=== PATIENT | male | born 1990 | race Caucasian/White ===

== ENCOUNTER 2020-02-17 22:25 | Inpatient (IN) | payer BC ==
[~2020-02-17] VITALS: Ht 180.3 cm; Wt 86.1 kg
[2020-02-17 22:45] VITALS: BP 119/58
[2020-02-17] MEDS ORDERED: ONDANSETRON PF 4 MG/2 ML VIAL. IVP PRN (23:00)
[2020-02-17] MEDS: IV NORMAL SALINE 1000ML BAG 1,000 ML IV SCH (23:41)
--- NOTE | 2020-02-18 | NUR ---
The patient, WILNER DHALIWAL, 29 y/o, M admitted by MANJULA DUONG MD, was given written information regarding hospital policies, unit procedures and contact persons. Valuables were checked and left in room with patient . Vitals stable, call light within reach. Will continue to monitor.
[2020-02-18] MEDS: fentaNYL PF VIAL 100 MCG/2 ML VIAL IVP PRN ×5 (00:33→20:55)
[2020-02-18 03:45] VITALS: BP 103/59
[2020-02-18] MEDS: ACETAMINOPHEN 325 MG TABLET. PO PRN ×2 (04:33→11:20)
--- NOTE | 2020-02-18 06:07 | PDOC1 ---
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 right forearm age 14 Cardiovascular: No pertinent hx Pulmonary: No pertinent hx GI: No pertinent hx Psych: No pertinent hx Rheumatologic: No pertinent hx Infectious disease: No pertinent hx ENT: No pertinent hx Renal/: No pertinent hx Endocrine: No pertinent hx Dermatology: No pertinent hx Family History Family History: High Cholestrol Social History Smoke: No ALCOHOL: occassional Drugs: None Current Medications Current Medications Current Medications Sodium Chloride 1,000 ml @ 140 mls/hr Q7H9M IV Last administered on 02/17/20at 23:41; Start 02/17/20 at 23:00 Acetaminophen (Tylenol) 650 mg PRN Q6HRS PRN PO MILD PAIN / TEMP > 100.3'F Last administered on 02/18/20at 04:33; Start 02/17/20 at 23:00 Ondansetron HCl (Zofran) 4 mg PRN Q4HRS PRN IVP NAUSEA/VOMITING Last administered on 02/18/20at 00:33; Start 02/17/20 at 23:00 Fentanyl Citrate (Fentanyl 2ml Vial) 50 mcg PRN Q3HRS PRN IVP PAIN Last administered on 02/18/20at 00:33; Start 02/17/20 at 23:00 Allergies Allergies: Uncoded Allergies: iodine contrast (Allergy, Intermediate, 02/17/20) ROS Review of System rlq pain x 24 hrs General: YES: Chills, Fatigue, Appetite PSYCHOLOGICAL ROS: No: Anxiety, Behavioral Disorder, Concentration difficultie, Decreased libido, Depression, Disorientation, Hallucinations, Hostility, Irritablity, Memory difficulties, Mood Swings, Obsessive thoughts, Physical abuse, Sexual abuse, Sleep disturbances, Suicidal ideation, Other Eyes: No Blurry vision, No Decreased vision, No Double vision, No Dry eyes, No Excessive tearing, No Eye Pain, No Itchy Eyes, No Loss of vision, No Photophobia, No Scotomata, No Uses contacts, No Uses glasses, No Other HEENT: No: Heacaches, Visual Changes, Hearing change, Nasal congestion, Nasal discharge, Oral lesions, Sinus pain, Sore Throat, Epistaxis, Sneezing, Snoring, Tinnitus, Vertigo, Vocal changes, Other Hematological and Lymphatic: No: Bleeding Problems, Blood Clots, Blood Transfusions, Brusing, Night Sweats, Pallor, Swollen Lymph Nodes, Other ENDOCRINE: No: Breast Changes, Galactorrhea, Hair Pattern Changes, Hot Flashes, Malaise/lethargy, Mood Swings, Palpitations, Polydipsia/polyuria, Skin Changes, Temperature Intolerance, Unexpected Weight Changes, Other Breast: No New/Changing Breast Lumps, No Nipple changes, No Nipple discharge, No Other Respiratory: No: Cough, Hemoptysis, Orthopnea, Pleuritic Pain, Shortness of breath, SOB with excertion, Sputum Changes, Stridor, Tachypnea, Wheezing, Other Cardiovascular: No Chest Pain, No Palpitations, No Orthopnea, No Paroxysmal Noc. Dyspnea, No Edema, No Lt Headedness, No Other Gastrointestinal: Yes Nausea, Yes Vomiting, Yes Abdominal Pain; No Diarrhea, No Constipation, No Melena, No Hematochezia, No Other Genitourinary: No Dysuria, No Frequency, No Incontinence, No Hematuria, No Retention, No Discharge, No Urgency, No Pain, No Flank Pain, No Other, No , No , No , No , No , No , No Musculoskeletal: No Gait Disturbance, No Joint Pain, No Joint Stiffness, No Joint Swelling, No Muscle Pain, No Muscular Weakness, No Pain In:, No Swelling In:, No Other Neurological: No Behavorial Changes, No Bowel/Bladder ControlChng, No Confusion , No Dizziness, No Gait Disturbance, No Headaches, No Impaired Coord/balance, No Memory Loss, No Numbness/Tingling, No Seizures, No Speech Problems, No Tremors, No Visual Changes, No Weakness, No Other Skin: No Dry Skin, No Eczema, No Hair Changes, No Lumps, No Mole Changes, No Mottling, No Nail Changes, No Pruritus, No Rash, No Skin Lesion Changes, No Other, No Acne Physical Exam General: Alert, Oriented X3, Cooperative, No acute distress, mild distress HEENT: PERRLA Lungs: Clear to auscultation Heart: S1S2, RRR, no thrills, no rubs, no gallops, no murmurs, other (TACHY) Breasts: Not examined Abdomen: No masses, Other (rlq tender ) Rectal Exam: not examined PELVIC: Examination not indicated Extremities: No clubbing, No cyanosis, No edema, Normal pulses Skin: No significant lesion Neuro: Normal speech, Strength at 5/5 X4 ext, Sensation intact, Cranial nerves 3-12 NL Psych/Mental Status: Mental status NL, Mood NL Vitals Vitals Vital Signs Date Time Temp Pulse Resp B/P (MAP) Pulse Ox O2 Delivery O2 Flow Rate FiO2 02/18/20 03:45 102.8 108 18 103/59 (74) 97 Room Air 102.8 Labs Labs pending this AM VTE Prophylaxis Ordered VTE Prophylaxis Devices: No VTE Pharmacological Prophylaxi: Yes Assessment/Plan Assessment/Plan impression 1. sepsis, acute 2. acute appendicitis 3. Tachycardia sec to sepsis plan admit blood cult consult gen surgery emperic IV FLAGYL, ROCEPHIN NPO IV FLUID SUPPORT SERIAL EXAMS LACTIC ACID hold lovenox for possible surgery this AM SCD'S d/w er dr by phone Justifications for Admission Other Justification MANJULA DUONG MD Feb 18, 2020 06:07
[2020-02-18] MEDS: IV NORMAL SALINE 1000ML BAG 1,000 ML IV SCH ×5 (07:31→13:18)
[2020-02-18] MEDS ORDERED: diphenhydrAMINE 50 MG/ML VIAL IVP PRN (07:45)
[2020-02-18] MEDS ORDERED: guaiFENesin ORAL 200 MG/10 ML LIQUID. PO PRN (07:45)
[2020-02-18] MEDS ORDERED: ONDANSETRON PF 4 MG/2 ML VIAL. IV PRN (07:45)
[2020-02-18] MEDS ORDERED: IV NORMAL SALINE 500ML BAG 500 ML IV PRN (07:45)
[2020-02-18] MEDS ORDERED: LORazepam 0.5 MG TABLET PO PRN (07:45)
[2020-02-18] MEDS ORDERED: BUPIVACAINE-EPI 0.5%-1:200000 MPF 30 ML VIAL. INJ ONE (07:45)
[2020-02-18] MEDS ORDERED: 0.9 % SODIUM CHLORIDE 10 ML DISP.SYRIN. IV PRN (07:45)
[2020-02-18] MEDS ORDERED: HYDROmorphone 2 MG/ML VIAL IV PRN (07:45)
[2020-02-18] MEDS ORDERED: DOCUSATE SODIUM 100 MG CAPSULE. PO PRN (07:45)
[2020-02-18] MEDS ORDERED: ACETAMINOPHEN 650 MG SUPP.RECT. PR PRN (07:45)
[2020-02-18] MEDS ORDERED: ALBUTEROL SULFATE 2.5 MG/3 ML NEBU. NEB PRN (07:45)
[2020-02-18] MEDS: cefTRIAXone IV Push 1 GM VIAL. IVP SCH (08:11)
[2020-02-18 08:18] LABS: ALBUMIN 3.3 g/dL (3.4-5.0); ALBUMIN/GLOBULIN RATIO 0.9 (1.0-1.7); CALCIUM 8.6 mg/dL (8.5-10.1); CREATININE 1.2 mg/dL (0.7-1.3); GFR 70.6; POTASSIUM 3.5 mmol/L (3.5-5.1); TOTAL BILIRUBIN 1.1 mg/dL (0.2-1.0); TOTAL PROTEIN 6.8 g/dL (6.4-8.2)
[2020-02-18 08:26] LABS: BASO % 0 % (0-3); EOS % 0 % (0-3); HEMATOCRIT 46.2 % (39.0-53.0); HEMOGLOBIN 15.6 g/dL (13.0-17.5); LYMPH # 0.3 x10^3/uL (1.0-4.8); LYMPH % 5 % (24-48); MEAN CORPUSCULAR HEMOGLOBIN 32 pg (25-35); MEAN CORPUSCULAR HGB CONC 34 g/dL (31-37); MEAN CORPUSCULAR VOLUME 95 fL (79-100); MONO # 0.2 x10^3/uL (0.0-1.1); MONO % 3 % (0-9); NEUT # 6.7 x10^3/uL (1.8-7.7); NEUT % 93 % (31-73); PLATELET COUNT 161 x10^3/uL (140-400); RED BLOOD COUNT 4.87 x10^6/uL (4.30-5.70); RED CELL DISTRIBUTION WIDTH 13.3 % (11.5-14.5); WHITE BLOOD COUNT 7.2 x10^3/uL (4.0-11.0)
[2020-02-18 10:31] LABS: % BANDS 10 % (0-9); % BASOS 1 % (0-3); % LYMPHS 3 % (24-48); % MONOS 1 % (0-10); % SEGS 85 % (35-66); PLT ESTIMATE ADEQUATE (ADEQUATE)
--- NOTE | 2020-02-18 10:55 | RAD ---
Single view of the chest. 02/18/2020 6:08 AM Indication: Reason: FEVER / Spl. Instructions: / History: Comparison: None Findings: There is no focal consolidation. There is no pleural effusion or pneumothorax. The cardiomediastinal silhouette and pulmonary vasculature are within normal limits. No acute osseous abnormalities are seen. Impression: No evidence of acute cardiopulmonary process. Electronically signed by: Guilherme Abbott MD (02/18/2020 10:52 AM) [id number]
[2020-02-18 11:16] VITALS: BP 100/66
[2020-02-18 11:22] LABS: BILIRUBIN,URINE NEGATIVE (NEG); CLARITY,URINE CLEAR; COLOR,URINE AMBER; NITRITE,URINE NEGATIVE (NEG); PH,URINE 6.5 (<5.0-8.0); PROTEIN,URINE 30 mg/dL (NEG-TRACE)
[2020-02-18 11:30] LABS: BACTERIA,URINE FEW /HPF (0-FEW); RBC,URINE OCC /HPF (0-2)
[2020-02-18] MEDS ORDERED: IV RINGERS,LACTATED 1000ML 1,000 ML IV SCH (11:38)
[2020-02-18] MEDS ORDERED: ONDANSETRON PF 4 MG/2 ML VIAL. IVP PRN (11:45)
[2020-02-18] MEDS ORDERED: HYDROmorphone 2 MG/ML VIAL IVP PRN (11:45)
[2020-02-18] MEDS ORDERED: PROCHLORPERAZINE 10 MG/2 ML VIAL. IVP PRN (11:45)
[2020-02-18] MEDS ORDERED: LIDOCAINE 1% PF 2 ML VIAL. ID PRN (11:45)
[2020-02-18] MEDS ORDERED: fentaNYL PF VIAL 100 MCG/2 ML VIAL IVP PRN (11:45)
[2020-02-18] MEDS ORDERED: MORPHINE SULFATE 2 MG/ML VIAL. IVP PRN (11:45)
[2020-02-18] MEDS ORDERED: ROCURONIUM 50 MG/5 ML VIAL. ONE (12:43)
[2020-02-18] MEDS ORDERED: fentaNYL PF VIAL 250 MCG/5 ML VIAL ONE (12:44)
[2020-02-18] MEDS ORDERED: MIDAZOLAM HCL/PF 2 MG/2 ML VIAL. ONE (12:44)
[2020-02-18] MEDS ORDERED: IV NORMAL SALINE 1000ML BAG 1,000 ML IV ONE (12:45)
[2020-02-18] MEDS ORDERED: ONDANSETRON PF 4 MG/2 ML VIAL. ONE ×2 (12:47)
[2020-02-18] MEDS ORDERED: PROPOFOL 10 MG/ML (20ML) VIAL. IV ONE (12:47)
[2020-02-18] MEDS ORDERED: LIDOCAINE 2% PF 5 ML VIAL. ONE (12:47)
[2020-02-18] MEDS ORDERED: DEXAMETHASONE SOD PHOS 4 MG/ML VIAL ONE (12:47)
--- NOTE | 2020-02-18 13:11 | NUR ---
SS following for discharge planning. SS reviewed pt chart and discussed with pt RN. Pt is from home and is currently on room air. Pt on IV Rocephin. COVID19 negative. Pt having surgery today. SS will continue to follow for discharge planning.
[2020-02-18] MEDS ORDERED: SUCCINYLCHOLINE 200 MG/10 ML VIAL. ONE (14:36)
[2020-02-18] MEDS ORDERED: SEVOFLURANE 61 TO 120 MINUTES. IH ONE (14:36)
--- NOTE | 2020-02-18 15:25 | PDOC2 ---
CONSULT Date of Consult Date of Consult DATE: 02/18/20 TIME: 15:21 History of Present Illness Reason for Visit: The patient is a 29 year old male who was transferred from [facility] out of concern for appendicitis. He reported to the ER due to abdominal pain. He admits to having some intermittent chronic abdominal pain for several years, and states he was once told he may have Crohn's disease. He currently is not receiving any treatments. Yesterday he developed more severe pain around the umbilicus and lower abdomen with associated vomiting. Past Medical History Cardiovascular: No pertinent hx Pulmonary: No pertinent hx GI: No pertinent hx Psych: No pertinent hx Rheumatologic: No pertinent hx Infectious disease: No pertinent hx ENT: No pertinent hx Renal/: No pertinent hx Endocrine: No pertinent hx Dermatology: No pertinent hx Past Surgical History Past Surgical History No abdominal procedures Family History Family History: High Cholestrol Social History No ALCOHOL: occassional Drugs: None Current Medications Current Medications Current Medications Sodium Chloride 1,000 ml @ 140 mls/hr Q7H9M IV Last administered on 02/18/20at 08:10; Start 02/17/20 at 23:00 Acetaminophen (Tylenol) 650 mg PRN Q6HRS PRN PO MILD PAIN / TEMP > 100.3'F Last administered on 02/18/20at 11:20; Start 02/17/20 at 23:00 Ondansetron HCl (Zofran) 4 mg PRN Q4HRS PRN IVP NAUSEA/VOMITING Last administered on 02/18/20at 00:33; Start 02/17/20 at 23:00 Fentanyl Citrate (Fentanyl 2ml Vial) 50 mcg PRN Q3HRS PRN IVP PAIN Last administered on 02/18/20at 08:07; Start 02/17/20 at 23:00 Ceftriaxone Sodium (Rocephin) 1 gm Q24H IVP Last administered on 02/18/20at 08:11; Start 02/18/20 at 07:00 Metronidazole 100 ml @ 100 mls/hr Q8HRS IV ; Start 02/18/20 at 14:00 Bupivacaine HCl/ Epinephrine Bitart (Sensorcain-Epi 0.5%-1:017517 Mpf) 30 ml 1X ONCE INJ ; Start 02/18/20 at 07:45; Stop 02/18/20 at 07:46; Status DC Sodium Chloride 1,000 ml @ 2,250 mls/hr Q27M IV ; Start 02/18/20 at 07:31; Stop 02/18/20 at 08:31; Status DC Sodium Chloride 500 ml @ 1,000 mls/hr PRN Q30MIN PRN IV SEE COMMENTS; Start 02/18/20 at 07:45 Sodium Chloride (Normal Saline Flush) 3 ml QSHIFT PRN IV AFTER MEDS AND BLOOD DRAWS; Start 02/18/20 at 07:45 Ondansetron HCl (Zofran) 4 mg PRN Q4HRS PRN IV NAUSEA/VOMITING; Start 02/18/20 at 07:45 Acetaminophen (Tylenol Supp) 650 mg PRN Q4HRS PRN MI TEMP OVER 100.4F OR MILD PAIN; Start 02/18/20 at 07:45 Diphenhydramine HCl (Benadryl) 25 mg PRN Q4HRS PRN IVP ITCHING; Start 02/18/20 at 07:45 Docusate Sodium (Colace) 100 mg PRN BID PRN PO HARD STOOLS; Start 02/18/20 at 07:45 Albuterol Sulfate (Ventolin Neb Soln) 2.5 mg PRN Q4HRS PRN NEB SHORTNESS OF BREATH; Start 02/18/20 at 07:45 Guaifenesin (Robitussin) 200 mg PRN Q4HRS PRN PO COUGH; Start 02/18/20 at 07:45 Lorazepam (Ativan) 0.5 mg PRN Q4HRS PRN PO ANXIETY / AGITATION; Start 02/18/20 at 07:45 Hydromorphone HCl (Dilaudid) 1 mg PRN Q2HRS PRN IV SEVERE PAIN 7-10; Start 02/18/20 at 07:45 Ondansetron HCl (Zofran) 4 mg PRN Q6HRS PRN IVP NAUSEA/VOMITING; Start 02/18/20 at 11:45; Stop 02/19/20 at 11:44 Fentanyl Citrate (Fentanyl 2ml Vial) 25 mcg PRN Q5MIN PRN IVP MILD PAIN 1-3; Start 02/18/20 at 11:45; Stop 02/19/20 at 11:44 Fentanyl Citrate (Fentanyl 2ml Vial) 50 mcg PRN Q5MIN PRN IVP MODERATE TO SEVERE PAIN; Start 02/18/20 at 11:45; Stop 02/19/20 at 11:44 Morphine Sulfate (Morphine Sulfate) 1 mg PRN Q10MIN PRN IVP SEVERE PAIN 7-10; Start 02/18/20 at 11:45; Stop 02/19/20 at 11:44 Ringer's Solution 1,000 ml @ 30 mls/hr Q24H IV Last administered on 02/18/20at 12:15; Start 02/18/20 at 11:38; Stop 02/18/20 at 23:37 Lidocaine HCl (Xylocaine-Mpf 1% 2ml Vial) 2 ml 1X PRN PRN ID IV START; Start 02/18/20 at 11:45; Stop 02/19/20 at 11:44 Hydromorphone HCl (Dilaudid) 0.5 mg PRN Q10MIN PRN IVP SEV PAIN, Second choice; Start 02/18/20 at 11:45; Stop 02/19/20 at 11:44 Prochlorperazine Edisylate (Compazine) 5 mg PACU PRN PRN IVP NAUSEA, MRX1; Start 02/18/20 at 11:45; Stop 02/19/20 at 11:44 Sodium Chloride 1,000 ml @ 1,000 mls/hr 1X ONCE IV ; Start 02/18/20 at 12:45; Stop 02/18/20 at 13:56; Status DC Rocuronium [place] (Zemuron) 50 mg STK-MED ONCE .ROUTE ; Start 02/18/20 at 12:43; Stop 02/18/20 at 12:43; Status DC Midazolam HCl (Versed) 2 mg STK-MED ONCE .ROUTE ; Start 02/18/20 at 12:44; Stop 02/18/20 at 12:44; Status DC Fentanyl Citrate (Fentanyl 5ml Vial) 250 mcg STK-MED ONCE .ROUTE ; Start 02/18/20 at 12:44; Stop 02/18/20 at 12:44; Status DC Ondansetron HCl (Zofran) 4 mg STK-MED ONCE .ROUTE ; Start 02/18/20 at 12:47; Stop 02/18/20 at 12:47; Status DC Ondansetron HCl (Zofran) 4 mg STK-MED ONCE .ROUTE ; Start 02/18/20 at 12:47; Stop 02/18/20 at 12:47; Status DC Dexamethasone Sodium Phosphate (Decadron) 4 mg STK-MED ONCE .ROUTE ; Start 02/18/20 at 12:47; Stop 02/18/20 at 12:47; Status DC Propofol (Diprivan) 200 mg STK-MED ONCE IV ; Start 02/18/20 at 12:47; Stop 02/18/20 at 12:47; Status DC Lidocaine HCl (Lidocaine Pf 2% Vial) 5 ml STK-MED ONCE .ROUTE ; Start 02/18/20 at 12:47; Stop 02/18/20 at 12:47; Status DC Sevoflurane (Ultane) 60 ml STK-MED ONCE IH ; Start 02/18/20 at 14:36; Stop 02/18/20 at 14:36; Status DC Succinylcholine Chloride (Anectine) 200 mg STK-MED ONCE .ROUTE ; Start 02/18/20 at 14:36; Stop 02/18/20 at 14:37; Status DC Allergies Allergies: Coded Allergies: Iodine and Iodide Containing Produc (Verified Allergy, Intermediate, 02/18/20) vancomycin (Verified Adverse Reaction, Severe, Shortness of Air, 02/18/20) ROS General: No: Chills, Night Sweats, Fatigue, Malaise, Appetite, Other PSYCHOLOGICAL ROS: No: Anxiety, Behavioral Disorder, Concentration difficultie, Decreased libido, Depression, Disorientation, Hallucinations, Hostility, Irritablity, Memory difficulties, Mood Swings, Obsessive thoughts, Physical abuse, Sexual abuse, Sleep disturbances, Suicidal ideation, Other Eyes: No Blurry vision, No Decreased vision, No Double vision, No Dry eyes, No Excessive tearing, No Eye Pain, No Itchy Eyes, No Loss of vision, No Photophobia, No Scotomata, No Uses contacts, No Uses glasses, No Other HEENT: No: Heacaches, Visual Changes, Hearing change, Nasal congestion, Nasal discharge, Oral lesions, Sinus pain, Sore Throat, Epistaxis, Sneezing, Snoring, Tinnitus, Vertigo, Vocal changes, Other Hematological and Lymphatic: No: Bleeding Problems, Blood Clots, Blood Transfusions, Brusing, Night Sweats, Pallor, Swollen Lymph Nodes, Other ENDOCRINE: No: Breast Changes, Galactorrhea, Hair Pattern Changes, Hot Flashes, Malaise/lethargy, Mood Swings, Palpitations, Polydipsia/polyuria, Skin Changes, Temperature Intolerance, Unexpected Weight Changes, Other Cardiovascular: No Chest Pain, No Palpitations, No Orthopnea, No Paroxysmal Noc. Dyspnea, No Edema, No Lt Headedness, No Other Gastrointestinal: Yes Vomiting, Yes Abdominal Pain Genitourinary: No Dysuria, No Frequency, No Incontinence, No Hematuria, No Retention, No Discharge, No Urgency, No Pain, No Flank Pain, No Other, No , No , No , No , No , No , No Musculoskeletal: No Gait Disturbance, No Joint Pain, No Joint Stiffness, No Joint Swelling, No Muscle Pain, No Muscular Weakness, No Pain In:, No Swelling In:, No Other Neurological: No Behavorial Changes, No Bowel/Bladder ControlChng, No Confusion, No Dizziness, No Gait Disturbance, No Headaches, No Impaired Coord/balance, No Memory Loss, No Numbness/Tingling, No Seizures, No Speech Problems, No Tremors, No Visual Changes, No Weakness, No Other Skin: No Dry Skin, No Eczema, No Hair Changes, No Lumps, No Mole Changes, No Mottling, No Nail Changes, No Pruritus, No Rash, No Skin Lesion Changes, No Other, No Acne Physical Exam General: Alert, Oriented X3, Cooperative HEENT: Atraumatic Lungs: Clear to auscultation Heart: Regular rate Abdomen: Soft (tender with palpation in RLQ and lower mid abdomen) Extremities: No clubbing, No cyanosis Skin: No rashes, No breakdown Neuro: Normal speech Psych/Mental Status: Mental status NL Vitals VITALS Vital Signs Date Time Temp Pulse Resp B/P (MAP) Pulse Ox O2 Delivery O2 Flow Rate FiO2 02/18/20 12:33 99.2 86 15 111/65 100 Room Air 99.2 Labs Labs Laboratory Tests Test 02/18/20 06:40 02/18/20 07:50 02/18/20 09:30 02/18/20 10:30 Prothrombin Time 14.0 SEC (11.7-14.0) Prothromb Time International Ratio 1.1 (0.8-1.1) Activated Partial Thromboplast Time 37 SEC (24-38) Fibrinogen 400 mg/dL (200-440) C-Reactive Protein, Quantitative 111.6 mg/L (0-3.3) Procalcitonin 2.25 ng/mL (0.00-0.10) White Blood Count 7.2 x10^3/uL (4.0-11.0) Red Blood Count 4.87 x10^6/uL (4.30-5.70) Hemoglobin 15.6 g/dL (13.0-17.5) Hematocrit 46.2 % (39.0-53.0) Mean Corpuscular Volume 95 fL (79-100) Mean Corpuscular Hemoglobin 32 pg (25-35) Mean Corpuscular Hemoglobin Concent 34 g/dL (31-37) Red Cell Distribution Width 13.3 % (11.5-14.5) Platelet Count 161 x10^3/uL (140-400) Neutrophils (%) (Auto) 93 % (31-73) Lymphocytes (%) (Auto) 5 % (24-48) Monocytes (%) (Auto) 3 % (0-9) Eosinophils (%) (Auto) 0 % (0-3) Basophils (%) (Auto) 0 % (0-3) Neutrophils # (Auto) 6.7 x10^3/uL (1.8-7.7) Lymphocytes # (Auto) 0.3 x10^3/uL (1.0-4.8) Monocytes # (Auto) 0.2 x10^3/uL (0.0-1.1) Eosinophils # (Auto) 0.0 x10^3/uL (0.0-0.7) Basophils # (Auto) 0.0 x10^3/uL (0.0-0.2) Segmented Neutrophils % 85 % (35-66) Band Neutrophils % 10 % (0-9) Lymphocytes % 3 % (24-48) Monocytes % 1 % (0-10) Basophils % 1 % (0-3) Platelet Estimate Adequate (ADEQUATE) Sodium Level 139 mmol/L (136-145) Potassium Level 3.5 mmol/L (3.5-5.1) Chloride Level 104 mmol/L (98-107) Carbon Dioxide Level 25 mmol/L (21-32) Anion Gap 10 (6-14) Blood Urea Nitrogen 8 mg/dL (8-26) Creatinine 1.2 mg/dL (0.7-1.3) Estimated GFR (Cockcroft-Gault) 70.6 BUN/Creatinine Ratio 7 (6-20) Glucose Level 108 mg/dL (70-99) Calcium Level 8.6 mg/dL (8.5-10.1) Total Bilirubin 1.1 mg/dL (0.2-1.0) Aspartate Amino Transf (AST/SGOT) 22 U/L (15-37) Alanine Aminotransferase (ALT/SGPT) 23 U/L (16-63) Alkaline Phosphatase 56 U/L (46-116) Total Protein 6.8 g/dL (6.4-8.2) Albumin 3.3 g/dL (3.4-5.0) Albumin/Globulin Ratio 0.9 (1.0-1.7) SARS-CoV-2 Antigen (Rapid) Negative (NEGATIVE) Urine Collection Type Unknown Urine Color Ashlyn Urine Clarity Clear Urine pH 6.5 (<5.0-8.0) Urine Specific [place] 1.025 (1.000-1.030) Urine Protein 30 mg/dL (NEG-TRACE) Urine Glucose (UA) Negative mg/dL (NEG) Urine Ketones (Stick) Trace mg/dL (NEG) Urine Blood Negative (NEG) Urine Nitrite Negative (NEG) Urine Bilirubin Negative (NEG) Urine Urobilinogen Dipstick 1.0 mg/dL (0.2 mg/dL) Urine Leukocyte Esterase Negative (NEG) Urine RBC Occ /HPF (0-2) Urine WBC 1-4 /HPF (0-4) Urine Squamous Epithelial Cells Occ /LPF Urine Bacteria Few /HPF (0-FEW) Urine Mucus Marked /LPF Laboratory Tests Test 02/18/20 06:40 02/18/20 07:50 02/18/20 09:30 02/18/20 10:30 Prothrombin Time 14.0 SEC (11.7-14.0) Prothromb Time International Ratio 1.1 (0.8-1.1) Activated Partial Thromboplast Time 37 SEC (24-38) Fibrinogen 400 mg/dL (200-440) C-Reactive Protein, Quantitative 111.6 mg/L (0-3.3) Procalcitonin 2.25 ng/mL (0.00-0.10) White Blood Count 7.2 x10^3/uL (4.0-11.0) Red Blood Count 4.87 x10^6/uL (4.30-5.70) Hemoglobin 15.6 g/dL (13.0-17.5) Hematocrit 46.2 % (39.0-53.0) Mean Corpuscular Volume 95 fL (79-100) Mean Corpuscular Hemoglobin 32 pg (25-35) Mean Corpuscular Hemoglobin Concent 34 g/dL (31-37) Red Cell Distribution Width 13.3 % (11.5-14.5) Platelet Count 161 x10^3/uL (140-400) Neutrophils (%) (Auto) 93 % (31-73) Lymphocytes (%) (Auto) 5 % (24-48) Monocytes (%) (Auto) 3 % (0-9) Eosinophils (%) (Auto) 0 % (0-3) Basophils (%) (Auto) 0 % (0-3) Neutrophils # (Auto) 6.7 x10^3/uL (1.8-7.7) Lymphocytes # (Auto) 0.3 x10^3/uL (1.0-4.8) Monocytes # (Auto) 0.2 x10^3/uL (0.0-1.1) Eosinophils # (Auto) 0.0 x10^3/uL (0.0-0.7) Basophils # (Auto) 0.0 x10^3/uL (0.0-0.2) Segmented Neutrophils % 85 % (35-66) Band Neutrophils % 10 % (0-9) Lymphocytes % 3 % (24-48) Monocytes % 1 % (0-10) Basophils % 1 % (0-3) Platelet Estimate Adequate (ADEQUATE) Sodium Level 139 mmol/L (136-145) Potassium Level 3.5 mmol/L (3.5-5.1) Chloride Level 104 mmol/L (98-107) Carbon Dioxide Level 25 mmol/L (21-32) Anion Gap 10 (6-14) Blood Urea Nitrogen 8 mg/dL (8-26) Creatinine 1.2 mg/dL (0.7-1.3) Estimated GFR (Cockcroft-Gault) 70.6 BUN/Creatinine Ratio 7 (6-20) Glucose Level 108 mg/dL (70-99) Calcium Level 8.6 mg/dL (8.5-10.1) Total Bilirubin 1.1 mg/dL (0.2-1.0) Aspartate Amino Transf (AST/SGOT) 22 U/L (15-37) Alanine Aminotransferase (ALT/SGPT) 23 U/L (16-63) Alkaline Phosphatase 56 U/L (46-116) Total Protein 6.8 g/dL (6.4-8.2) Albumin 3.3 g/dL (3.4-5.0) Albumin/Globulin Ratio 0.9 (1.0-1.7) SARS-CoV-2 Antigen (Rapid) Negative (NEGATIVE) Urine Collection Type Unknown Urine Color Ashlyn Urine Clarity Clear Urine pH 6.5 (<5.0-8.0) Urine Specific [place] 1.025 (1.000-1.030) Urine Protein 30 mg/dL (NEG-TRACE) Urine Glucose (UA) Negative mg/dL (NEG) Urine Ketones (Stick) Trace mg/dL (NEG) Urine Blood Negative (NEG) Urine Nitrite Negative (NEG) Urine Bilirubin Negative (NEG) Urine Urobilinogen Dipstick 1.0 mg/dL (0.2 mg/dL) Urine Leukocyte Esterase Negative (NEG) Urine RBC Occ /HPF (0-2) Urine WBC 1-4 /HPF (0-4) Urine Squamous Epithelial Cells Occ /LPF Urine Bacteria Few /HPF (0-FEW) Urine Mucus Marked /LPF Images Images CT abdomen: IMPRESSION: * Blind-ending tubular structure in the right lower quadrant which could be seen with a mildly dilated appendix. There is also edema seen to the fat adjacent to the tip. Would correlate with symptoms in the region since this can be seen with an early tip appendicitis in the correct clinical context. * Urinary bladder wall is mildly prominent but there is no definite adjacent inflammatory changes at could be from lack of distention but mild cystitis not excluded. Report called to the emergency department at 7:04 PM Assessment/Plan Assessment/Plan 29 year old male with abdominal pain, RLQ and lower mid abdomen, CT scan reviewed, raising concern for appendicitis, WBC normal however. Given presentation may be prudent to proceed to laparoscopic evaluation. The details and risks of surgery were discussed with the patient. He understands and would like to proceed. CAMILLA MURILLO MD Feb 18, 2020 15:25
[2020-02-18] MEDS ORDERED: PHENYLEPHRINE in 0.9% NACL PF 1 MG/10 ML SYRINGE. IV ONE (15:41)
[2020-02-18] MEDS ORDERED: KETOROLAC 30 MG/ML VIAL. ONE (16:02)
[2020-02-18] MEDS ORDERED: NEOSTIGMINE 10 MG/10 ML VIAL. ONE (16:03)
[2020-02-18] MEDS ORDERED: GLYCOPYRROLATE 1 MG/5 ML VIAL. ONE (16:03)
--- NOTE | 2020-02-18 16:22 | PDOC4 ---
Operative Note Operative Note Preoperative Diagnosis: Acute Appendicitis Postoperative Diagnosis: ?Early appendicitis Procedure: Laparoscopic appendectomy Surgeon: Edison Corporate Responsibility Officer: Ramona Medley Anesthesia: Gen. EBL: 10 mL Specimen: Appendix to pathology Drains: None Complications: None Indication: The patient is a 29-year-old male who reported to the emergency department with abdominal pain. His evaluation raise concern for possible acute appendicitis. The patient was offered surgical treatment with a laparoscopic appendectomy. The risks of surgery were discussed which include bleeding, infection, visceral injury, pain, anesthetic risk, potential need for additional surgery or procedure. The patient understands and would like to proceed. Description: The patient was taken to the operating room and placed supine on the operating table. Gen. anesthesia was performed. The abdomen was prepped with ChloraPrep and draped in a standard surgical manner. A supraumbilical incision was made through which a veress needle was inserted and a pneumoperitoneum was created. A visualized 5 mm trocar was inserted and the laparoscope was introduced. In the left lower quadrant a 5 mm trocar was inserted. In the suprapubic region a 12 mm trocar was inserted. The appendix was identified and located in a retroperitoneal position. The distal tip seems somewhat scarred in consistent with mild inflammation. The remainder of the abdominal cavity was evaluated for an alternate source. The terminal ileum and cecum appeared normal. The bowel was run proximal from the terminal ileum with no evidence of any abnormalities. The visualized colon appeared unremarkable. The stomach and liver were unremarkable. There was no clear evidence of an alternate inflammatory process or other abnormality. We then proceeded with the appendectomy. The mesoappendix was bluntly from the appendix. The mesoappendix was controlled using several clips and it was divided. The appendix was then amputated off the cecum using an Endo KERON 45 stapling device. The appendix was then placed in an endoscopic bag and extracted at the suprapubic incision site. The fascia there was closed with 0 Vicryl and infiltrated with half percent Marcaine with epinephrine. The RLQ was visualized and the staple line appeared well intact and hemostasis was good. No other abnormalities were identified grossly. The remaining ports were removed and the pneumoperitoneum was relieved. The skin at all incision sites was closed with 4-0 Monocryl. Steri-Strips and dressings were applied. The patient tolerated the procedure well and was sent to the recovery room in stable condition. At the end of the case all counts were correct. CAMILLA MURILLO MD Feb 18, 2020 16:22
[2020-02-18] MEDS ORDERED: oxyCODONE/APAP 5/325 1 TAB TABLET PO PRN (16:30)
[2020-02-18] MEDS ORDERED: fentaNYL PF VIAL 100 MCG/2 ML VIAL ONE (16:44)
[2020-02-18 17:15] VITALS: BP 111/69
[2020-02-18 17:45] VITALS: BP 105/64
[2020-02-18 18:00] VITALS: BP 108/68
[2020-02-18] MEDS: oxyCODONE/APAP 5/325 1 TAB TABLET PO PRN (22:12)
[2020-02-18 22:38] VITALS: BP 111/64
[2020-02-19] MEDS: oxyCODONE/APAP 5/325 1 TAB TABLET PO PRN ×3 (02:22→14:43)
[2020-02-19 02:28] VITALS: BP 116/77
[2020-02-19 07:00] VITALS: BP 114/72
--- NOTE | 2020-02-19 07:28 | EKG ---
[facility] [address] [place] [address] Test Date: 2020-02-19 Test Time: 07:26:31 Pat Name: WILNER DHALIWAL Department: Room: 261 1 Gender: M Receptionist Nurse: CHRISTIAN : [id number] Requested By: MANJULA DUONG Order Number: [id number] Reading MD: Measurements Intervals [place] Rate: 63 P: -19 IA: 140 QRS: 13 QRSD: 84 T: 5 QT: 402 QTc: 414 Interpretive Statements SINUS RHYTHM NORMAL ECG RI6.02 No previous ECG available for comparison
--- NOTE | 2020-02-19 08:10 | PDOC ---
Infectious Disease Note Vital Sign Vital Signs Vital Signs Date Time Temp Pulse Resp B/P (MAP) Pulse Ox O2 Delivery O2 Flow Rate FiO2 02/19/20 06:51 20 Room Air 02/19/20 02:28 97.8 59 116/77 (90) 98 97.8 02/18/20 16:46 10.0 Labs Lab Laboratory Tests Test 02/18/20 09:30 02/18/20 10:30 SARS-CoV-2 Antigen (Rapid) Negative (NEGATIVE) Urine Collection Type Unknown Urine Color Ashlyn Urine Clarity Clear Urine pH 6.5 (<5.0-8.0) Urine Specific [place] 1.025 (1.000-1.030) Urine Protein 30 mg/dL (NEG-TRACE) Urine Glucose (UA) Negative mg/dL (NEG) Urine Ketones (Stick) Trace mg/dL (NEG) Urine Blood Negative (NEG) Urine Nitrite Negative (NEG) Urine Bilirubin Negative (NEG) Urine Urobilinogen Dipstick 1.0 mg/dL (0.2 mg/dL) Urine Leukocyte Esterase Negative (NEG) Urine RBC Occ /HPF (0-2) Urine WBC 1-4 /HPF (0-4) Urine Squamous Epithelial Cells Occ /LPF Urine Bacteria Few /HPF (0-FEW) Urine Mucus Marked /LPF Micro Microbiology 02/18/20 Blood Culture - Preliminary, Resulted NO GROWTH AFTER 1 DAY Objective Assessment pt seen, consult dictated Plan Plan of Care ok to d/c on po IZABELLA Burt MD Feb 19, 2020 08:10
--- NOTE | 2020-02-19 08:36 | PDOC ---
PROGRESS NOTES Date of Service: DATE: 02/19/20 TIME: 08:36 Chief Complaint Chief Complaint VTE Prophylaxis Ordered VTE Prophylaxis Devices: No VTE Pharmacological Prophylaxi: Yes discharge dx Assessment/Plan impression 1. sepsis, acute 2. acute appendicitis 3. Tachycardia sec to sepsis plan admit blood cult consult gen surgery emperic IV FLAGYL, ROCEPHIN NPO IV FLUID SUPPORT SERIAL EXAMS LACTIC ACID lovenox dvt prophylaxis SCD'S 02-18 PLAN D/C ON PO AUGMENTIN IF OK WITH SURGERY, AND PEGGY DIET WELL, LABS PENDING afebrile, eating well d/c planning 26 min History of Present Illness History of Present Illness Identification/Chief Complaint Chief Complaint transfer from [facility] ER, SELF DRIVEN for suspected acute appendicitis, ct co ncerning for dilated appendix, had febrile episodes yesterday and this am Past Medical History Past Medical History 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 right forearm age 14 Cardiovascular: No pertinent hx Pulmonary: No pertinent hx GI: No pertinent hx Psych: No pertinent hx Rheumatologic: No pertinent hx Infectious disease: No pertinent hx ENT: No pertinent hx Renal/: No pertinent hx Endocrine: No pertinent hx Dermatology: No pertinent hx Family History Family History: High Cholestrol Social History Smoke: No ALCOHOL: occassional Drugs: None Vitals Vitals Vital Signs Date Time Temp Pulse Resp B/P (MAP) Pulse Ox O2 Delivery O2 Flow Rate FiO2 02/19/20 06:51 20 Room Air 02/19/20 02:28 97.8 59 116/77 (90) 98 97.8 02/18/20 16:46 10.0 Physical Exam Physical Exam HEENT: PERRLA Lungs: Clear to auscultation Heart: S1S2, RRR, no thrills, no rubs, no gallops, no murmurs, Breasts: Not examined Abdomen: No masses, Other (rlq tender ) Rectal Exam: not examined PELVIC: Examination not indicated Extremities: No clubbing, No cyanosis, No edema, Normal pulses Skin: No significant lesion Neuro: Normal speech, Strength at 5/5 X4 ext, Sensation intact, Cranial nerves 3-12 NL Psych/Mental Status: Mental status NL, Mood NL General: Alert, Oriented X3, Cooperative, No acute distress Heart: Regular rate, Normal S1, Normal S2 Lungs: Clear Abdomen: Soft (tender with palpation in RLQ and lower mid abdomen) Extremities: No clubbing, No cyanosis, No edema Skin: No rashes, No breakdown Labs LABS Laboratory Tests Test 02/18/20 09:30 02/18/20 10:30 SARS-CoV-2 Antigen (Rapid) Negative (NEGATIVE) Urine Collection Type Unknown Urine Color Ashlyn Urine Clarity Clear Urine pH 6.5 (<5.0-8.0) Urine Specific [place] 1.025 (1.000-1.030) Urine Protein 30 mg/dL (NEG-TRACE) Urine Glucose (UA) Negative mg/dL (NEG) Urine Ketones (Stick) Trace mg/dL (NEG) Urine Blood Negative (NEG) Urine Nitrite Negative (NEG) Urine Bilirubin Negative (NEG) Urine Urobilinogen Dipstick 1.0 mg/dL (0.2 mg/dL) Urine Leukocyte Esterase Negative (NEG) Urine RBC Occ /HPF (0-2) Urine WBC 1-4 /HPF (0-4) Urine Squamous Epithelial Cells Occ /LPF Urine Bacteria Few /HPF (0-FEW) Urine Mucus Marked /LPF Comment Review of Relevant I have reviewed the following items idania (where applicable) has been applied. Labs Laboratory Tests Test 02/18/20 06:40 02/18/20 07:50 02/18/20 09:30 02/18/20 10:30 Prothrombin Time 14.0 SEC (11.7-14.0) Prothromb Time International Ratio 1.1 (0.8-1.1) Activated Partial Thromboplast Time 37 SEC (24-38) Fibrinogen 400 mg/dL (200-440) C-Reactive Protein, Quantitative 111.6 mg/L (0-3.3) Procalcitonin 2.25 ng/mL (0.00-0.10) White Blood Count 7.2 x10^3/uL (4.0-11.0) Red Blood Count 4.87 x10^6/uL (4.30-5.70) Hemoglobin 15.6 g/dL (13.0-17.5) Hematocrit 46.2 % (39.0-53.0) Mean Corpuscular Volume 95 fL (79-100) Mean Corpuscular Hemoglobin 32 pg (25-35) Mean Corpuscular Hemoglobin Concent 34 g/dL (31-37) Red Cell Distribution Width 13.3 % (11.5-14.5) Platelet Count 161 x10^3/uL (140-400) Neutrophils (%) (Auto) 93 % (31-73) Lymphocytes (%) (Auto) 5 % (24-48) Monocytes (%) (Auto) 3 % (0-9) Eosinophils (%) (Auto) 0 % (0-3) Basophils (%) (Auto) 0 % (0-3) Neutrophils # (Auto) 6.7 x10^3/uL (1.8-7.7) Lymphocytes # (Auto) 0.3 x10^3/uL (1.0-4.8) Monocytes # (Auto) 0.2 x10^3/uL (0.0-1.1) Eosinophils # (Auto) 0.0 x10^3/uL (0.0-0.7) Basophils # (Auto) 0.0 x10^3/uL (0.0-0.2) Segmented Neutrophils % 85 % (35-66) Band Neutrophils % 10 % (0-9) Lymphocytes % 3 % (24-48) Monocytes % 1 % (0-10) Basophils % 1 % (0-3) Platelet Estimate Adequate (ADEQUATE) Sodium Level 139 mmol/L (136-145) Potassium Level 3.5 mmol/L (3.5-5.1) Chloride Level 104 mmol/L (98-107) Carbon Dioxide Level 25 mmol/L (21-32) Anion Gap 10 (6-14) Blood Urea Nitrogen 8 mg/dL (8-26) Creatinine 1.2 mg/dL (0.7-1.3) Estimated GFR (Cockcroft-Gault) 70.6 BUN/Creatinine Ratio 7 (6-20) Glucose Level 108 mg/dL (70-99) Calcium Level 8.6 mg/dL (8.5-10.1) Total Bilirubin 1.1 mg/dL (0.2-1.0) Aspartate Amino Transf (AST/SGOT) 22 U/L (15-37) Alanine Aminotransferase (ALT/SGPT) 23 U/L (16-63) Alkaline Phosphatase 56 U/L (46-116) Total Protein 6.8 g/dL (6.4-8.2) Albumin 3.3 g/dL (3.4-5.0) Albumin/Globulin Ratio 0.9 (1.0-1.7) SARS-CoV-2 Antigen (Rapid) Negative (NEGATIVE) Urine Collection Type Unknown Urine Color Ashlyn Urine Clarity Clear Urine pH 6.5 (<5.0-8.0) Urine Specific [place] 1.025 (1.000-1.030) Urine Protein 30 mg/dL (NEG-TRACE) Urine Glucose (UA) Negative mg/dL (NEG) Urine Ketones (Stick) Trace mg/dL (NEG) Urine Blood Negative (NEG) Urine Nitrite Negative (NEG) Urine Bilirubin Negative (NEG) Urine Urobilinogen Dipstick 1.0 mg/dL (0.2 mg/dL) Urine Leukocyte Esterase Negative (NEG) Urine RBC Occ /HPF (0-2) Urine WBC 1-4 /HPF (0-4) Urine Squamous Epithelial Cells Occ /LPF Urine Bacteria Few /HPF (0-FEW) Urine Mucus Marked /LPF Laboratory Tests Test 02/18/20 09:30 02/18/20 10:30 SARS-CoV-2 Antigen (Rapid) Negative (NEGATIVE) Urine Collection Type Unknown Urine Color Ashlyn Urine Clarity Clear Urine pH 6.5 (<5.0-8.0) Urine Specific [place] 1.025 (1.000-1.030) Urine Protein 30 mg/dL (NEG-TRACE) Urine Glucose (UA) Negative mg/dL (NEG) Urine Ketones (Stick) Trace mg/dL (NEG) Urine Blood Negative (NEG) Urine Nitrite Negative (NEG) Urine Bilirubin Negative (NEG) Urine Urobilinogen Dipstick 1.0 mg/dL (0.2 mg/dL) Urine Leukocyte Esterase Negative (NEG) Urine RBC Occ /HPF (0-2) Urine WBC 1-4 /HPF (0-4) Urine Squamous Epithelial Cells Occ /LPF Urine Bacteria Few /HPF (0-FEW) Urine Mucus Marked /LPF Microbiology 02/18/20 Blood Culture - Preliminary, Resulted NO GROWTH AFTER 1 DAY Medications Current Medications Sodium Chloride 1,000 ml @ 140 mls/hr Q7H9M IV Last administered on 02/18/20at 08:10; Start 02/17/20 at 23:00 Acetaminophen (Tylenol) 650 mg PRN Q6HRS PRN PO MILD PAIN / TEMP > 100.3'F Last administered on 02/18/20at 11:20; Start 02/17/20 at 23:00 Ondansetron HCl (Zofran) 4 mg PRN Q4HRS PRN IVP NAUSEA/VOMITING Last administered on 02/18/20at 00:33; Start 02/17/20 at 23:00 Fentanyl Citrate (Fentanyl 2ml Vial) 50 mcg PRN Q3HRS PRN IVP PAIN Last administered on 02/18/20at 20:55; Start 02/17/20 at 23:00 Ceftriaxone Sodium (Rocephin) 1 gm Q24H IVP Last administered on 02/18/20at 08:11; Start 02/18/20 at 07:00 Metronidazole 100 ml @ 100 mls/hr Q8HRS IV Last administered on 02/19/20at 06:44; Start 02/18/20 at 14:00 Bupivacaine HCl/ Epinephrine Bitart (Sensorcain-Epi 0.5%-1:615868 Mpf) 30 ml 1X ONCE INJ Last administered on 02/18/20at 15:50; Start 02/18/20 at 07:45; Stop 02/18/20 at 07:46; Status DC Sodium Chloride 1,000 ml @ 2,250 mls/hr Q27M IV ; Start 02/18/20 at 07:31; Stop 02/18/20 at 08:31; Status DC Sodium Chloride 500 ml @ 1,000 mls/hr PRN Q30MIN PRN IV SEE COMMENTS; Start 02/18/20 at 07:45 Sodium Chloride (Normal Saline Flush) 3 ml QSHIFT PRN IV AFTER MEDS AND BLOOD DRAWS; Start 02/18/20 at 07:45 Ondansetron HCl (Zofran) 4 mg PRN Q4HRS PRN IV NAUSEA/VOMITING; Start 02/18/20 at 07:45 Acetaminophen (Tylenol Supp) 650 mg PRN Q4HRS PRN GA TEMP OVER 100.4F OR MILD PAIN; Start 02/18/20 at 07:45 Diphenhydramine HCl (Benadryl) 25 mg PRN Q4HRS PRN IVP ITCHING; Start 02/18/20 at 07:45 Docusate Sodium (Colace) 100 mg PRN BID PRN PO HARD STOOLS; Start 02/18/20 at 07:45 Albuterol Sulfate (Ventolin Neb Soln) 2.5 mg PRN Q4HRS PRN NEB SHORTNESS OF BREATH; Start 02/18/20 at 07:45 Guaifenesin (Robitussin) 200 mg PRN Q4HRS PRN PO COUGH; Start 02/18/20 at 07:45 Lorazepam (Ativan) 0.5 mg PRN Q4HRS PRN PO ANXIETY / AGITATION; Start 02/18/20 at 07:45 Hydromorphone HCl (Dilaudid) 1 mg PRN Q2HRS PRN IV SEVERE PAIN 7-10; Start 02/18/20 at 07:45 Ondansetron HCl (Zofran) 4 mg PRN Q6HRS PRN IVP NAUSEA/VOMITING; Start 02/18/20 at 11:45; Stop 02/19/20 at 11:44 Fentanyl Citrate (Fentanyl 2ml Vial) 25 mcg PRN Q5MIN PRN IVP MILD PAIN 1-3 Last administered on 02/18/20at 16:57; Start 02/18/20 at 11:45; Stop 02/19/20 at 11:44 Fentanyl Citrate (Fentanyl 2ml Vial) 50 mcg PRN Q5MIN PRN IVP MODERATE TO SEVERE PAIN; Start 02/18/20 at 11:45; Stop 02/19/20 at 11:44 Morphine Sulfate (Morphine Sulfate) 1 mg PRN Q10MIN PRN IVP SEVERE PAIN 7-10; Start 02/18/20 at 11:45; Stop 02/19/20 at 11:44 Ringer's Solution 1,000 ml @ 30 mls/hr Q24H IV Last administered on 02/18/20at 12:15; Start 02/18/20 at 11:38; Stop 02/18/20 at 23:37; Status DC Lidocaine HCl (Xylocaine-Mpf 1% 2ml Vial) 2 ml 1X PRN PRN ID IV START; Start 02/18/20 at 11:45; Stop 02/19/20 at 11:44 Hydromorphone HCl (Dilaudid) 0.5 mg PRN Q10MIN PRN IVP SEV PAIN, Second choice; Start 02/18/20 at 11:45; Stop 02/19/20 at 11:44 Prochlorperazine Edisylate (Compazine) 5 mg PACU PRN PRN IVP NAUSEA, MRX1; Start 02/18/20 at 11:45; Stop 02/19/20 at 11:44 Sodium Chloride 1,000 ml @ 1,000 mls/hr 1X ONCE IV Last administered on 02/18/20at 17:20; Start 02/18/20 at 12:45; Stop 02/18/20 at 13:56; Status DC Rocuronium Minetto (Zemuron) 50 mg STK-MED ONCE .ROUTE ; Start 02/18/20 at 12:43; Stop 02/18/20 at 12:43; Status DC Midazolam HCl (Versed) 2 mg STK-MED ONCE .ROUTE ; Start 02/18/20 at 12:44; Stop 02/18/20 at 12:44; Status DC Fentanyl Citrate (Fentanyl 5ml Vial) 250 mcg STK-MED ONCE .ROUTE ; Start 02/18/20 at 12:44; Stop 02/18/20 at 12:44; Status DC Ondansetron HCl (Zofran) 4 mg STK-MED ONCE .ROUTE ; Start 02/18/20 at 12:47; Stop 02/18/20 at 12:47; Status DC Ondansetron HCl (Zofran) 4 mg STK-MED ONCE .ROUTE ; Start 02/18/20 at 12:47; Stop 02/18/20 at 12:47; Status DC Dexamethasone Sodium Phosphate (Decadron) 4 mg STK-MED ONCE .ROUTE ; Start 02/18/20 at 12:47; Stop 02/18/20 at 12:47; Status DC Propofol (Diprivan) 200 mg STK-MED ONCE IV ; Start 02/18/20 at 12:47; Stop 02/18/20 at 12:47; Status DC Lidocaine HCl (Lidocaine Pf 2% Vial) 5 ml STK-MED ONCE .ROUTE ; Start 02/18/20 at 12:47; Stop 02/18/20 at 12:47; Status DC Sevoflurane (Ultane) 60 ml STK-MED ONCE IH ; Start 02/18/20 at 14:36; Stop 02/18/20 at 14:36; Status DC Succinylcholine Chloride (Anectine) 200 mg STK-MED ONCE .ROUTE ; Start 02/18/20 at 14:36; Stop 02/18/20 at 14:37; Status DC Phenylephrine HCl (PHENYLEPHRINE in 0.9% NACL PF) 1 mg STK-MED ONCE IV ; Start 02/18/20 at 15:41; Stop 02/18/20 at 15:41; Status DC Ketorolac Tromethamine (Toradol 30mg Vial) 30 mg STK-MED ONCE .ROUTE ; Start 02/18/20 at 16:02; Stop 02/18/20 at 16:03; Status DC Glycopyrrolate (Robinul) 1 mg STK-MED ONCE .ROUTE ; Start 02/18/20 at 16:03; Stop 02/18/20 at 16:03; Status DC Neostigmine Methylsulfate (Bloxiverz) 10 mg STK-MED ONCE .ROUTE ; Start 02/18/20 at 16:03; Stop 02/18/20 at 16:03; Status DC Oxycodone/ Acetaminophen (Percocet 5/325) 1 tab PRN Q4HRS PRN PO PAIN Last administered on 02/19/20at 06:51; Start 02/18/20 at 16:30 Oxycodone/ Acetaminophen (Percocet 5/325) 2 tab PRN Q4HRS PRN PO PAIN; Start 02/18/20 at 16:30 Fentanyl Citrate (Fentanyl 2ml Vial) 100 mcg STK-MED ONCE .ROUTE ; Start 02/18/20 at 16:44; Stop 02/18/20 at 16:45; Status DC Vitals/I & O Vital Sign - Last 24 Hours 02/18/20 02/18/20 02/18/20 02/18/20 11:16 12:33 16:24 16:24 Temp 102.8 99.2 98.2 102.8 99.2 98.2 Pulse 100 86 72 Resp 18 15 16 B/P (MAP) 100/66 (77) 111/65 118/74 Pulse Ox 100 100 100 O2 Delivery Room Air Room Air Mask Simple Mask O2 Flow Rate 10 02/18/20 02/18/20 02/18/20 02/18/20 16:40 16:46 16:55 16:57 Temp 98.2 98.2 98.2 98.2 Pulse 58 60 Resp 16 16 16 20 B/P (MAP) 120/68 116/63 Pulse Ox 100 100 97 96 O2 Delivery Room Air Simple Mask Room Air Room Air O2 Flow Rate 10.0 02/18/20 02/18/20 02/18/20 02/18/20 17:15 17:30 17:45 18:00 Pulse 73 73 65 B/P (MAP) 111/69 (83) 105/64 (78) 108/68 (81) Pulse Ox 98 98 99 O2 Delivery Room Air 02/18/20 02/18/20 02/18/20 02/18/20 20:55 21:25 22:12 22:38 Temp 98.0 98.0 Pulse 68 Resp 20 20 20 20 B/P (MAP) 111/64 (80) Pulse Ox 99 O2 Delivery Room Air Room Air Room Air Room Air 02/18/20 02/19/20 02/19/20 02/19/20 23:30 02:22 02:28 03:30 Temp 97.8 97.8 Pulse 59 Resp 20 20 20 22 B/P (MAP) 116/77 (90) Pulse Ox 98 O2 Delivery Room Air Room Air Room Air 02/19/20 06:51 Resp 20 O2 Delivery Room Air Intake and Output 02/18/20 02/18/20 02/19/20 15:00 23:00 07:00 Intake Total 50 ml 1700 ml 1400 ml Output Total 200 ml 25 ml Balance -150 ml 1675 ml 1400 ml Justicifation of Admission Dx: Justifications for Admission: Justification of Admission Dx: Yes Comments: sepsis MANJULA DUONG MD Feb 19, 2020 08:36
--- NOTE | 2020-02-19 09:23 | CONS ---
DATE OF CONSULTATION: 02/19/2020 REQUESTING PHYSICIAN: Dr. Koch. REASON FOR CONSULTATION: Appendicitis. HISTORY OF PRESENT ILLNESS: This is a 29-year-old gentleman who presented to [place] with abdominal pain. The patient had fever and chills, fever up to 103. The patient had a CT scan done, which was showing appendicitis. The patient was then taken to the OR by Dr. Hogan and a laparoscopic appendicectomy done. The patient is feeling really good, slight incision pain otherwise no abdominal pain, no nausea, vomiting, or diarrhea. He is able to eat. The patient is ready to go home. PAST MEDICAL HISTORY: Positive for right upper extremity osteomyelitis, which was treated in the past. SOCIAL HISTORY: Negative for smoking, alcohol or illicit drug use. ALLERGIES: THE PATIENT IS LISTED ALLERGIC TO VANCOMYCIN. REVIEW OF SYSTEMS: As per HPI, all other systems reviewed are negative. CURRENT MEDICATIONS: The patient is on Rocephin and Flagyl. PHYSICAL EXAMINATION: VITAL SIGNS: Stable, afebrile. T-max was 102.8. HEENT: NAD. NECK: Supple, no JVP, no lymphadenopathy. LUNGS: Clear. HEART: S1, S2 regular. ABDOMEN: Soft, nontender, no organomegaly. EXTREMITIES: No edema, cyanosis. SKIN: Unremarkable. NEUROLOGIC: The patient is alert, awake and appropriate. No focal neurologic deficit. LABORATORY DATA: White count is normal. BUN and creatinine is normal. Urinalysis is unremarkable. COVID-19 is negative. Blood culture here in [place] was negative so far. Chest x-ray is unremarkable. IMPRESSION: 1. Acute appendicitis, status post appendicectomy. 2. Fever and chills. RECOMMENDATIONS: Today as he tolerates diet, antibiotic can be switched over to the p.o. Augmentin for possible discharge if okay from surgery. Thank you very much, Dr. Koch, for giving me the opportunity to participate in this patient's care. IZABELLA LOWRY MD DR: TED/carmen JOB#: [id number] / [id number]
[2020-02-19] MEDS: cefTRIAXone IV Push 1 GM VIAL. IVP SCH (09:43)
[2020-02-19 10:34] LABS: BASO % 0 % (0-3); EOS % 0 % (0-3); HEMATOCRIT 40.4 % (39.0-53.0); HEMOGLOBIN 13.8 g/dL (13.0-17.5); LYMPH # 0.4 x10^3/uL (1.0-4.8); LYMPH % 9 % (24-48); MEAN CORPUSCULAR HEMOGLOBIN 32 pg (25-35); MEAN CORPUSCULAR HGB CONC 34 g/dL (31-37); MEAN CORPUSCULAR VOLUME 94 fL (79-100); MONO # 0.3 x10^3/uL (0.0-1.1); MONO % 7 % (0-9); NEUT # 4.2 x10^3/uL (1.8-7.7); NEUT % 84 % (31-73); PLATELET COUNT 129 x10^3/uL (140-400); RED BLOOD COUNT 4.32 x10^6/uL (4.30-5.70); RED CELL DISTRIBUTION WIDTH 13.1 % (11.5-14.5); WHITE BLOOD COUNT 4.9 x10^3/uL (4.0-11.0)
[2020-02-19 10:49] LABS: CALCIUM 8.6 mg/dL (8.5-10.1); CREATININE 0.9 mg/dL (0.7-1.3); GFR 98.4; POTASSIUM 3.7 mmol/L (3.5-5.1)
[2020-02-19 11:00] VITALS: BP 108/68
--- NOTE | 2020-02-19 13:40 | NUR ---
SS following up with discharge planning. SS reviewed pt chart and discussed with pt RN. Pt is currently on room air. Pt on IV Rocephin. COVID19 negative. Pt had surgery 02/18/2020. Discharge plan is to home when medically stable. SS will continue to follow for discharge planning.
--- NOTE | 2020-02-19 14:10 | PDOC3 ---
Discharge Summary Date of Admission: Feb 18, 2020 Date of Discharge: Feb 19, 2020 Follow-Up: 3-5 days Admitting Diagnosis comment: discharge dx Assessment/Plan impression 1. sepsis, acute 2. acute appendicitis 3. Tachycardia sec to sepsis plan admit blood cult consult gen surgery emperic IV FLAGYL, ROCEPHIN NPO IV FLUID SUPPORT SERIAL EXAMS LACTIC ACID lovenox dvt prophylaxis SCD'S 02-18 PLAN D/C ON PO AUGMENTIN IF OK WITH SURGERY, AND PEGGY DIET WELL, LABS PENDING afebrile, eating well d/c planning 26 min History of Present Illness History of Present Illness Identification/Chief Complaint Chief Complaint transfer from [facility], SELF DRIVEN for suspected acute appendicitis, ct concerning for dilated appendix, had febrile episodes yesterday and this am Past Medical History Past Medical History 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 right forearm age 14 Cardiovascular: No pertinent hx Pulmonary: No pertinent hx GI: No pertinent hx Psych: No pertinent hx Rheumatologic: No pertinent hx Infectious disease: No pertinent hx ENT: No pertinent hx Renal/: No pertinent hx Endocrine: No pertinent hx Dermatology: No pertinent hx Family History Family History: High Cholestrol Social History Smoke: No ALCOHOL: occassional Drugs: None Vitals Vitals Vital Signs Date Time Temp Pulse Resp B/P (MAP) Pulse Ox O2 Delivery O2 Flow Rate FiO2 02/19/20 06:51 20 Room Air 02/19/20 02:28 97.8 59 116/77 (90) 98 97.8 02/18/20 16:46 10.0 Physical Exam Physical Exam HEENT: PERRLA nad Lungs: Clear to auscultation Heart: S1S2, RRR, no thrills, no rubs, no gallops, no murmurs, Breasts: Not examined Rectal Exam: not examined PELVIC: Examination not indicated Extremities: No clubbing, No cyanosis, No edema, Normal pulses Skin: No significant lesion Neuro: Normal speech, Strength at 5/5 X4 ext, Sensation intact, Cranial nerves 3-12 NL Psych/Mental Status: Mental status NL, Mood NL General: Alert, Oriented X3, Cooperative, No acute distress Heart: Regular rate, Normal S1, Normal S2 Lungs: Clear Abdomen: Soft Extremities: No clubbing, No cyanosis, No edema FINAL DIAGNOSIS discharge dx Assessment/Plan impression 1. sepsis, acute 2. acute appendicitis 3. Tachycardia sec to sepsis plan admit blood cult consult gen surgery emperic IV FLAGYL, ROCEPHIN NPO IV FLUID SUPPORT SERIAL EXAMS LACTIC ACID lovenox dvt prophylaxis SCD'S 02-18 PLAN D/C ON PO AUGMENTIN IF OK WITH SURGERY, AND PEGGY DIET WELL, LABS PENDING afebrile, eating well d/c planning 26 min History of Present Illness History of Present Illness Identification/Chief Complaint Chief Complaint transfer from [facility], SELF DRIVEN for suspected acute appendicitis, ct concerning for dilated appendix, had febrile episodes yesterday and this am Past Medical History Past Medical History 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 right forearm age 14 Cardiovascular: No pertinent hx Pulmonary: No pertinent hx GI: No pertinent hx Psych: No pertinent hx Rheumatologic: No pertinent hx Infectious disease: No pertinent hx ENT: No pertinent hx Renal/: No pertinent hx Endocrine: No pertinent hx Dermatology: No pertinent hx Family History Family History: High Cholestrol Social History Smoke: No ALCOHOL: occassional Drugs: None Vitals Vitals Vital Signs Date Time Temp Pulse Resp B/P (MAP) Pulse Ox O2 Delivery O2 Flow Rate FiO2 02/19/20 06:51 20 Room Air 02/19/20 02:28 97.8 59 116/77 (90) 98 97.8 02/18/20 16:46 10.0 Physical Exam Physical Exam HEENT: PERRLA Lungs: Clear to auscultation Heart: S1S2, RRR, no thrills, no rubs, no gallops, no murmurs, Breasts: Not examined Abdomen: No masses, Other (rlq tender ) Rectal Exam: not examined PELVIC: Examination not indicated Extremities: No clubbing, No cyanosis, No edema, Normal pulses Skin: No significant lesion Neuro: Normal speech, Strength at 5/5 X4 ext, Sensation intact, Cranial nerves 3-12 NL Psych/Mental Status: Mental status NL, Mood NL General: Alert, Oriented X3, Cooperative, No acute distress Heart: Regular rate, Normal S1, Normal S2 Lungs: Clear Abdomen: Soft (tender with palpation in RLQ and lower mid abdomen) Extremities: No clubbing, No cyanosis, No edema Brief Hospital Course Mr. Will is a 29 old [sex] who presented with [ acute appendicitis] CONDITION AT DISCHARGE: Improved Discharge Medications Current Medications Sodium Chloride 1,000 ml @ 140 mls/hr Q7H9M IV Last administered on 02/18/20at 08:10; Start 02/17/20 at 23:00 Acetaminophen (Tylenol) 650 mg PRN Q6HRS PRN PO MILD PAIN / TEMP > 100.3'F Last administered on 02/18/20at 11:20; Start 02/17/20 at 23:00 Ondansetron HCl (Zofran) 4 mg PRN Q4HRS PRN IVP NAUSEA/VOMITING Last administered on 02/18/20at 00:33; Start 02/17/20 at 23:00 Fentanyl Citrate (Fentanyl 2ml Vial) 50 mcg PRN Q3HRS PRN IVP PAIN Last administered on 02/18/20at 20:55; Start 02/17/20 at 23:00 Ceftriaxone Sodium (Rocephin) 1 gm Q24H IVP Last administered on 02/19/20at 09:43; Start 02/18/20 at 07:00 Metronidazole 100 ml @ 100 mls/hr Q8HRS IV Last administered on 02/19/20at 06:44; Start 02/18/20 at 14:00 Bupivacaine HCl/ Epinephrine Bitart (Sensorcain-Epi 0.5%-1:[id number] Mpf) 30 ml 1X ONCE INJ Last administered on 02/18/20at 15:50; Start 02/18/20 at 07:45; Stop 02/18/20 at 07:46; Status DC Sodium Chloride 1,000 ml @ 2,250 mls/hr Q27M IV ; Start 02/18/20 at 07:31; Stop 02/18/20 at 08:31; Status DC Sodium Chloride 500 ml @ 1,000 mls/hr PRN Q30MIN PRN IV SEE COMMENTS; Start 02/18/20 at 07:45 Sodium Chloride (Normal Saline Flush) 3 ml QSHIFT PRN IV AFTER MEDS AND BLOOD DRAWS; Start 02/18/20 at 07:45 Ondansetron HCl (Zofran) 4 mg PRN Q4HRS PRN IV NAUSEA/VOMITING; Start 02/18/20 at 07:45 Acetaminophen (Tylenol Supp) 650 mg PRN Q4HRS PRN IN TEMP OVER 100.4F OR MILD PAIN; Start 02/18/20 at 07:45 Diphenhydramine HCl (Benadryl) 25 mg PRN Q4HRS PRN IVP ITCHING; Start 02/18/20 at 07:45 Docusate Sodium (Colace) 100 mg PRN BID PRN PO HARD STOOLS; Start 02/18/20 at 07:45 Albuterol Sulfate (Ventolin Neb Soln) 2.5 mg PRN Q4HRS PRN NEB SHORTNESS OF BREATH; Start 02/18/20 at 07:45 Guaifenesin (Robitussin) 200 mg PRN Q4HRS PRN PO COUGH; Start 02/18/20 at 07:45 Lorazepam (Ativan) 0.5 mg PRN Q4HRS PRN PO ANXIETY / AGITATION; Start 02/18/20 at 07:45 Hydromorphone HCl (Dilaudid) 1 mg PRN Q2HRS PRN IV SEVERE PAIN 7-10; Start 02/18/20 at 07:45 Ondansetron HCl (Zofran) 4 mg PRN Q6HRS PRN IVP NAUSEA/VOMITING; Start 02/18/20 at 11:45; Stop 02/19/20 at 11:44; Status DC Fentanyl Citrate (Fentanyl 2ml Vial) 25 mcg PRN Q5MIN PRN IVP MILD PAIN 1-3 Last administered on 02/18/20at 16:57; Start 02/18/20 at 11:45; Stop 02/19/20 at 11:44; Status DC Fentanyl Citrate (Fentanyl 2ml Vial) 50 mcg PRN Q5MIN PRN IVP MODERATE TO SEVERE PAIN; Start 02/18/20 at 11:45; Stop 02/19/20 at 11:44; Status DC Morphine Sulfate (Morphine Sulfate) 1 mg PRN Q10MIN PRN IVP SEVERE PAIN 7-10; Start 02/18/20 at 11:45; Stop 02/19/20 at 11:44; Status DC Ringer's Solution 1,000 ml @ 30 mls/hr Q24H IV Last administered on 02/18/20at 12:15; Start 02/18/20 at 11:38; Stop 02/18/20 at 23:37; Status DC Lidocaine HCl (Xylocaine-Mpf 1% 2ml Vial) 2 ml 1X PRN PRN ID IV START; Start 02/18/20 at 11:45; Stop 02/19/20 at 11:44; Status DC Hydromorphone HCl (Dilaudid) 0.5 mg PRN Q10MIN PRN IVP SEV PAIN, Second choice; Start 02/18/20 at 11:45; Stop 02/19/20 at 11:44; Status DC Prochlorperazine Edisylate (Compazine) 5 mg PACU PRN PRN IVP NAUSEA, MRX1; Start 02/18/20 at 11:45; Stop 02/19/20 at 11:44; Status DC Sodium Chloride 1,000 ml @ 1,000 mls/hr 1X ONCE IV Last administered on 02/18/20at 17:20; Start 02/18/20 at 12:45; Stop 02/18/20 at 13:56; Status DC Rocuronium Kenedy (Zemuron) 50 mg STK-MED ONCE .ROUTE ; Start 02/18/20 at 12:43; Stop 02/18/20 at 12:43; Status DC Midazolam HCl (Versed) 2 mg STK-MED ONCE .ROUTE ; Start 02/18/20 at 12:44; Stop 02/18/20 at 12:44; Status DC Fentanyl Citrate (Fentanyl 5ml Vial) 250 mcg STK-MED ONCE .ROUTE ; Start 02/18/20 at 12:44; Stop 02/18/20 at 12:44; Status DC Ondansetron HCl (Zofran) 4 mg STK-MED ONCE .ROUTE ; Start 02/18/20 at 12:47; Stop 02/18/20 at 12:47; Status DC Ondansetron HCl (Zofran) 4 mg STK-MED ONCE .ROUTE ; Start 02/18/20 at 12:47; Stop 02/18/20 at 12:47; Status DC Dexamethasone Sodium Phosphate (Decadron) 4 mg STK-MED ONCE .ROUTE ; Start 02/18/20 at 12:47; Stop 02/18/20 at 12:47; Status DC Propofol (Diprivan) 200 mg STK-MED ONCE IV ; Start 02/18/20 at 12:47; Stop 02/18/20 at 12:47; Status DC Lidocaine HCl (Lidocaine Pf 2% Vial) 5 ml STK-MED ONCE .ROUTE ; Start 02/18/20 at 12:47; Stop 02/18/20 at 12:47; Status DC Sevoflurane (Ultane) 60 ml STK-MED ONCE IH ; Start 02/18/20 at 14:36; Stop 02/18/20 at 14:36; Status DC Succinylcholine Chloride (Anectine) 200 mg STK-MED ONCE .ROUTE ; Start 02/18/20 at 14:36; Stop 02/18/20 at 14:37; Status DC Phenylephrine HCl (PHENYLEPHRINE in 0.9% NACL PF) 1 mg STK-MED ONCE IV ; Start 02/18/20 at 15:41; Stop 02/18/20 at 15:41; Status DC Ketorolac Tromethamine (Toradol 30mg Vial) 30 mg STK-MED ONCE .ROUTE ; Start 02/18/20 at 16:02; Stop 02/18/20 at 16:03; Status DC Glycopyrrolate (Robinul) 1 mg STK-MED ONCE .ROUTE ; Start 02/18/20 at 16:03; Stop 02/18/20 at 16:03; Status DC Neostigmine Methylsulfate (Bloxiverz) 10 mg STK-MED ONCE .ROUTE ; Start 02/18/20 at 16:03; Stop 02/18/20 at 16:03; Status DC Oxycodone/ Acetaminophen (Percocet 5/325) 1 tab PRN Q4HRS PRN PO PAIN Last administered on 02/19/20at 06:51; Start 02/18/20 at 16:30 Oxycodone/ Acetaminophen (Percocet 5/325) 2 tab PRN Q4HRS PRN PO PAIN; Start 02/18/20 at 16:30 Fentanyl Citrate (Fentanyl 2ml Vial) 100 mcg STK-MED ONCE .ROUTE ; Start 02/18/20 at 16:44; Stop 02/18/20 at 16:45; Status DC Vital Signs Vital Signs Date Time Temp Pulse Resp B/P (MAP) Pulse Ox O2 Delivery O2 Flow Rate FiO2 02/19/20 11:00 97.1 61 18 108/68 (81) 98 Room Air 97.1 02/18/20 16:46 10.0 Labs Laboratory Tests Test 02/18/20 06:40 02/18/20 07:50 02/18/20 09:30 02/18/20 10:30 Prothrombin Time 14.0 SEC (11.7-14.0) Prothromb Time International Ratio 1.1 (0.8-1.1) Activated Partial Thromboplast Time 37 SEC (24-38) Fibrinogen 400 mg/dL (200-440) C-Reactive Protein, Quantitative 111.6 mg/L (0-3.3) Procalcitonin 2.25 ng/mL (0.00-0.10) White Blood Count 7.2 x10^3/uL (4.0-11.0) Red Blood Count 4.87 x10^6/uL (4.30-5.70) Hemoglobin 15.6 g/dL (13.0-17.5) Hematocrit 46.2 % (39.0-53.0) Mean Corpuscular Volume 95 fL (79-100) Mean Corpuscular Hemoglobin 32 pg (25-35) Mean Corpuscular Hemoglobin Concent 34 g/dL (31-37) Red Cell Distribution Width 13.3 % (11.5-14.5) Platelet Count 161 x10^3/uL (140-400) Neutrophils (%) (Auto) 93 % (31-73) Lymphocytes (%) (Auto) 5 % (24-48) Monocytes (%) (Auto) 3 % (0-9) Eosinophils (%) (Auto) 0 % (0-3) Basophils (%) (Auto) 0 % (0-3) Neutrophils # (Auto) 6.7 x10^3/uL (1.8-7.7) Lymphocytes # (Auto) 0.3 x10^3/uL (1.0-4.8) Monocytes # (Auto) 0.2 x10^3/uL (0.0-1.1) Eosinophils # (Auto) 0.0 x10^3/uL (0.0-0.7) Basophils # (Auto) 0.0 x10^3/uL (0.0-0.2) Segmented Neutrophils % 85 % (35-66) Band Neutrophils % 10 % (0-9) Lymphocytes % 3 % (24-48) Monocytes % 1 % (0-10) Basophils % 1 % (0-3) Platelet Estimate Adequate (ADEQUATE) Sodium Level 139 mmol/L (136-145) Potassium Level 3.5 mmol/L (3.5-5.1) Chloride Level 104 mmol/L (98-107) Carbon Dioxide Level 25 mmol/L (21-32) Anion Gap 10 (6-14) Blood Urea Nitrogen 8 mg/dL (8-26) Creatinine 1.2 mg/dL (0.7-1.3) Estimated GFR (Cockcroft-Gault) 70.6 BUN/Creatinine Ratio 7 (6-20) Glucose Level 108 mg/dL (70-99) Calcium Level 8.6 mg/dL (8.5-10.1) Total Bilirubin 1.1 mg/dL (0.2-1.0) Aspartate Amino Transf (AST/SGOT) 22 U/L (15-37) Alanine Aminotransferase (ALT/SGPT) 23 U/L (16-63) Alkaline Phosphatase 56 U/L (46-116) Total Protein 6.8 g/dL (6.4-8.2) Albumin 3.3 g/dL (3.4-5.0) Albumin/Globulin Ratio 0.9 (1.0-1.7) SARS-CoV-2 Antigen (Rapid) Negative (NEGATIVE) Urine Collection Type Unknown Urine Color Ashlyn Urine Clarity Clear Urine pH 6.5 (<5.0-8.0) Urine Specific Sherrill 1.025 (1.000-1.030) Urine Protein 30 mg/dL (NEG-TRACE) Urine Glucose (UA) Negative mg/dL (NEG) Urine Ketones (Stick) Trace mg/dL (NEG) Urine Blood Negative (NEG) Urine Nitrite Negative (NEG) Urine Bilirubin Negative (NEG) Urine Urobilinogen Dipstick 1.0 mg/dL (0.2 mg/dL) Urine Leukocyte Esterase Negative (NEG) Urine RBC Occ /HPF (0-2) Urine WBC 1-4 /HPF (0-4) Urine Squamous Epithelial Cells Occ /LPF Urine Bacteria Few /HPF (0-FEW) Urine Mucus Marked /LPF Test 02/19/20 10:11 White Blood Count 4.9 x10^3/uL (4.0-11.0) Red Blood Count 4.32 x10^6/uL (4.30-5.70) Hemoglobin 13.8 g/dL (13.0-17.5) Hematocrit 40.4 % (39.0-53.0) Mean Corpuscular Volume 94 fL (79-100) Mean Corpuscular Hemoglobin 32 pg (25-35) Mean Corpuscular Hemoglobin Concent 34 g/dL (31-37) Red Cell Distribution Width 13.1 % (11.5-14.5) Platelet Count 129 x10^3/uL (140-400) Neutrophils (%) (Auto) 84 % (31-73) Lymphocytes (%) (Auto) 9 % (24-48) Monocytes (%) (Auto) 7 % (0-9) Eosinophils (%) (Auto) 0 % (0-3) Basophils (%) (Auto) 0 % (0-3) Neutrophils # (Auto) 4.2 x10^3/uL (1.8-7.7) Lymphocytes # (Auto) 0.4 x10^3/uL (1.0-4.8) Monocytes # (Auto) 0.3 x10^3/uL (0.0-1.1) Eosinophils # (Auto) 0.0 x10^3/uL (0.0-0.7) Basophils # (Auto) 0.0 x10^3/uL (0.0-0.2) Sodium Level 141 mmol/L (136-145) Potassium Level 3.7 mmol/L (3.5-5.1) Chloride Level 106 mmol/L (98-107) Carbon Dioxide Level 29 mmol/L (21-32) Anion Gap 6 (6-14) Blood Urea Nitrogen 9 mg/dL (8-26) Creatinine 0.9 mg/dL (0.7-1.3) Estimated GFR (Cockcroft-Gault) 98.4 Glucose Level 147 mg/dL (70-99) Calcium Level 8.6 mg/dL (8.5-10.1) Laboratory Tests Test 02/19/20 10:11 White Blood Count 4.9 x10^3/uL (4.0-11.0) Red Blood Count 4.32 x10^6/uL (4.30-5.70) Hemoglobin 13.8 g/dL (13.0-17.5) Hematocrit 40.4 % (39.0-53.0) Mean Corpuscular Volume 94 fL (79-100) Mean Corpuscular Hemoglobin 32 pg (25-35) Mean Corpuscular Hemoglobin Concent 34 g/dL (31-37) Red Cell Distribution Width 13.1 % (11.5-14.5) Platelet Count 129 x10^3/uL (140-400) Neutrophils (%) (Auto) 84 % (31-73) Lymphocytes (%) (Auto) 9 % (24-48) Monocytes (%) (Auto) 7 % (0-9) Eosinophils (%) (Auto) 0 % (0-3) Basophils (%) (Auto) 0 % (0-3) Neutrophils # (Auto) 4.2 x10^3/uL (1.8-7.7) Lymphocytes # (Auto) 0.4 x10^3/uL (1.0-4.8) Monocytes # (Auto) 0.3 x10^3/uL (0.0-1.1) Eosinophils # (Auto) 0.0 x10^3/uL (0.0-0.7) Basophils # (Auto) 0.0 x10^3/uL (0.0-0.2) Sodium Level 141 mmol/L (136-145) Potassium Level 3.7 mmol/L (3.5-5.1) Chloride Level 106 mmol/L (98-107) Carbon Dioxide Level 29 mmol/L (21-32) Anion Gap 6 (6-14) Blood Urea Nitrogen 9 mg/dL (8-26) Creatinine 0.9 mg/dL (0.7-1.3) Estimated GFR (Cockcroft-Gault) 98.4 Glucose Level 147 mg/dL (70-99) Calcium Level 8.6 mg/dL (8.5-10.1) Allergies Allergies Coded Allergies Type Severity Reaction Last Updated Verified Iodine and Iodide Containing Produc Allergy Intermediate 02/18/20 Yes vancomycin Adverse Reaction Severe Shortness of Air 02/18/20 Yes Disposition/Orders: D/C to Home Justicifation of Admission Dx: Justifications for Admission: Justification of Admission Dx: Yes MANJULA DUONG MD Feb 19, 2020 14:10
[2020-02-19] MEDS ORDERED: HYDR-2759 PO (14:14)
[2020-02-19] MEDS ORDERED: AMOX1TAB61 PO (14:14)
[2020-02-19] MEDS ORDERED: LACT1CAP6 PO (14:14)
[2020-02-19] MEDS ORDERED: DOCU-153 PO (14:14)
--- NOTE | 2020-02-19 14:15 | DISCH ---
DISCHARGE INSTRUCTIONS Condition on Discharge Condition on Discharge: Stable Activity After Discharge Activity Instructions for Disc: Activity as tolerated Driving Instructions after Dis: Do not drive Weight Bearing Status after Di: As tolerated Diet after Discharge Diet after Discharge: Regular Liquid Texture: Thin Liquid Checks after Discharge Checks after discharge: Check blood press - daily Contacting the DRIsaias after DC Call your doctor for: If your condition worsens Follow-Up Follow up with: pcp 3-5 days Treatment/Equipment after DC Adaptive Equipment Issued: None Warfarin Follow-Up Warfarin Follow UP: see surgery soon as directed MANJULA DUONG MD Feb 19, 2020 14:15
--- NOTE | 2020-02-19 14:34 | PDOC ---
SURGICAL PROGRESS NOTE DATE: 02/19/20 TIME: 14:32 Subjective tolerating diet pain managed no n/v Vital Signs Vital Signs Date Time Temp Pulse Resp B/P (MAP) Pulse Ox O2 Delivery O2 Flow Rate FiO2 02/19/20 11:00 97.1 61 18 108/68 (81) 98 Room Air 97.1 02/18/20 16:46 10.0 I&O Intake and Output 02/19/20 07:00 Intake Total 3150 ml Output Total 225 ml Balance 2925 ml Intake Oral 1950 ml IV Total 1200 ml Output Urine Total 215 ml Estimated Blood Loss 10 ml # Voids 2 General: Alert, Oriented X3, Cooperative Abdomen: Soft, Other (ND, lap sites dry ) Labs Laboratory Tests Test 02/18/20 06:40 02/18/20 07:50 02/18/20 09:30 02/18/20 10:30 Prothrombin Time 14.0 SEC (11.7-14.0) Prothromb Time International Ratio 1.1 (0.8-1.1) Activated Partial Thromboplast Time 37 SEC (24-38) Fibrinogen 400 mg/dL (200-440) C-Reactive Protein, Quantitative 111.6 mg/L (0-3.3) Procalcitonin 2.25 ng/mL (0.00-0.10) White Blood Count 7.2 x10^3/uL (4.0-11.0) Red Blood Count 4.87 x10^6/uL (4.30-5.70) Hemoglobin 15.6 g/dL (13.0-17.5) Hematocrit 46.2 % (39.0-53.0) Mean Corpuscular Volume 95 fL (79-100) Mean Corpuscular Hemoglobin 32 pg (25-35) Mean Corpuscular Hemoglobin Concent 34 g/dL (31-37) Red Cell Distribution Width 13.3 % (11.5-14.5) Platelet Count 161 x10^3/uL (140-400) Neutrophils (%) (Auto) 93 % (31-73) Lymphocytes (%) (Auto) 5 % (24-48) Monocytes (%) (Auto) 3 % (0-9) Eosinophils (%) (Auto) 0 % (0-3) Basophils (%) (Auto) 0 % (0-3) Neutrophils # (Auto) 6.7 x10^3/uL (1.8-7.7) Lymphocytes # (Auto) 0.3 x10^3/uL (1.0-4.8) Monocytes # (Auto) 0.2 x10^3/uL (0.0-1.1) Eosinophils # (Auto) 0.0 x10^3/uL (0.0-0.7) Basophils # (Auto) 0.0 x10^3/uL (0.0-0.2) Segmented Neutrophils % 85 % (35-66) Band Neutrophils % 10 % (0-9) Lymphocytes % 3 % (24-48) Monocytes % 1 % (0-10) Basophils % 1 % (0-3) Platelet Estimate Adequate (ADEQUATE) Sodium Level 139 mmol/L (136-145) Potassium Level 3.5 mmol/L (3.5-5.1) Chloride Level 104 mmol/L (98-107) Carbon Dioxide Level 25 mmol/L (21-32) Anion Gap 10 (6-14) Blood Urea Nitrogen 8 mg/dL (8-26) Creatinine 1.2 mg/dL (0.7-1.3) Estimated GFR (Cockcroft-Gault) 70.6 BUN/Creatinine Ratio 7 (6-20) Glucose Level 108 mg/dL (70-99) Calcium Level 8.6 mg/dL (8.5-10.1) Total Bilirubin 1.1 mg/dL (0.2-1.0) Aspartate Amino Transf (AST/SGOT) 22 U/L (15-37) Alanine Aminotransferase (ALT/SGPT) 23 U/L (16-63) Alkaline Phosphatase 56 U/L (46-116) Total Protein 6.8 g/dL (6.4-8.2) Albumin 3.3 g/dL (3.4-5.0) Albumin/Globulin Ratio 0.9 (1.0-1.7) SARS-CoV-2 Antigen (Rapid) Negative (NEGATIVE) Urine Collection Type Unknown Urine Color Ashlyn Urine Clarity Clear Urine pH 6.5 (<5.0-8.0) Urine Specific [place]son 1.025 (1.000-1.030) Urine Protein 30 mg/dL (NEG-TRACE) Urine Glucose (UA) Negative mg/dL (NEG) Urine Ketones (Stick) Trace mg/dL (NEG) Urine Blood Negative (NEG) Urine Nitrite Negative (NEG) Urine Bilirubin Negative (NEG) Urine Urobilinogen Dipstick 1.0 mg/dL (0.2 mg/dL) Urine Leukocyte Esterase Negative (NEG) Urine RBC Occ /HPF (0-2) Urine WBC 1-4 /HPF (0-4) Urine Squamous Epithelial Cells Occ /LPF Urine Bacteria Few /HPF (0-FEW) Urine Mucus Marked /LPF Test 02/19/20 10:11 White Blood Count 4.9 x10^3/uL (4.0-11.0) Red Blood Count 4.32 x10^6/uL (4.30-5.70) Hemoglobin 13.8 g/dL (13.0-17.5) Hematocrit 40.4 % (39.0-53.0) Mean Corpuscular Volume 94 fL (79-100) Mean Corpuscular Hemoglobin 32 pg (25-35) Mean Corpuscular Hemoglobin Concent 34 g/dL (31-37) Red Cell Distribution Width 13.1 % (11.5-14.5) Platelet Count 129 x10^3/uL (140-400) Neutrophils (%) (Auto) 84 % (31-73) Lymphocytes (%) (Auto) 9 % (24-48) Monocytes (%) (Auto) 7 % (0-9) Eosinophils (%) (Auto) 0 % (0-3) Basophils (%) (Auto) 0 % (0-3) Neutrophils # (Auto) 4.2 x10^3/uL (1.8-7.7) Lymphocytes # (Auto) 0.4 x10^3/uL (1.0-4.8) Monocytes # (Auto) 0.3 x10^3/uL (0.0-1.1) Eosinophils # (Auto) 0.0 x10^3/uL (0.0-0.7) Basophils # (Auto) 0.0 x10^3/uL (0.0-0.2) Sodium Level 141 mmol/L (136-145) Potassium Level 3.7 mmol/L (3.5-5.1) Chloride Level 106 mmol/L (98-107) Carbon Dioxide Level 29 mmol/L (21-32) Anion Gap 6 (6-14) Blood Urea Nitrogen 9 mg/dL (8-26) Creatinine 0.9 mg/dL (0.7-1.3) Estimated GFR (Cockcroft-Gault) 98.4 Glucose Level 147 mg/dL (70-99) Calcium Level 8.6 mg/dL (8.5-10.1) Laboratory Tests Test 02/19/20 10:11 White Blood Count 4.9 x10^3/uL (4.0-11.0) Red Blood Count 4.32 x10^6/uL (4.30-5.70) Hemoglobin 13.8 g/dL (13.0-17.5) Hematocrit 40.4 % (39.0-53.0) Mean Corpuscular Volume 94 fL (79-100) Mean Corpuscular Hemoglobin 32 pg (25-35) Mean Corpuscular Hemoglobin Concent 34 g/dL (31-37) Red Cell Distribution Width 13.1 % (11.5-14.5) Platelet Count 129 x10^3/uL (140-400) Neutrophils (%) (Auto) 84 % (31-73) Lymphocytes (%) (Auto) 9 % (24-48) Monocytes (%) (Auto) 7 % (0-9) Eosinophils (%) (Auto) 0 % (0-3) Basophils (%) (Auto) 0 % (0-3) Neutrophils # (Auto) 4.2 x10^3/uL (1.8-7.7) Lymphocytes # (Auto) 0.4 x10^3/uL (1.0-4.8) Monocytes # (Auto) 0.3 x10^3/uL (0.0-1.1) Eosinophils # (Auto) 0.0 x10^3/uL (0.0-0.7) Basophils # (Auto) 0.0 x10^3/uL (0.0-0.2) Sodium Level 141 mmol/L (136-145) Potassium Level 3.7 mmol/L (3.5-5.1) Chloride Level 106 mmol/L (98-107) Carbon Dioxide Level 29 mmol/L (21-32) Anion Gap 6 (6-14) Blood Urea Nitrogen 9 mg/dL (8-26) Creatinine 0.9 mg/dL (0.7-1.3) Estimated GFR (Cockcroft-Gault) 98.4 Glucose Level 147 mg/dL (70-99) Calcium Level 8.6 mg/dL (8.5-10.1) Assessment/Plan s/p appy stable surgically abx per ID noted FU 2 weeks Justicifation of Admission Dx: Justifications for Admission: Justification of Admission Dx: Yes KATE [employer] Feb 19, 2020 14:34
--- NOTE | 2020-02-19 15:51 | NUR ---
Discharge teaching verbal and written. Reviewed orders, follow up, wound precautions, ect. Patient verbalized understanding. 2 transmitted prescriptions, two written. IV removed without complications, catheter tip in-tact. All belongings with patient. Patient ambulated off of unit with nurse.
[2020-02-19] MEDS ORDERED: LACTOBACILLUS RHAMNOSUS GG 1 CAPSULE. PO SCH (21:00)
== END 2020-02-19 15:30 | disposition home or self-care (01) | DRG 854 ==
LOC: 2 SOUTH 22:25
PROVIDERS: ADMIT Family Medicine; ATTEND Family Medicine
PROC: 0DTJ4ZZ Resection of Appendix, Percutaneous Endoscopic Approach (ICD-10-PCS; principal; 2020-02-18 13:00)
DX: A41.9 Sepsis, unspecified organism (principal); K35.80 Unspecified acute appendicitis; G89.29 Other chronic pain; Z20.828 Contact with and (suspected) exposure to other viral communicable diseases; Z79.899 Other long term (current) drug therapy; Z88.8 Allergy status to other drugs, medicaments and biological substances
CPT/HCPCS: 36415; 71045; 80048; 80053; 81001; 84145; 85007; 85025; 85384; 85610; 85730; 86140; 87040; 87426; 93005; A7015; J0330; J0696; J1100; J1885; J2250; J2370; J2405; J2704; J2710; J3010; J3490; J7030; J7120; G0378